=== PATIENT | female | born 1935 | race African-American/Black ===

== ENCOUNTER 2018-05-08 20:06 | Emergency (ER) | payer OTHER ==
[~2018-05-08] VITALS: Ht 170.2 cm; Wt 45.0 kg
[2018-05-08 21:55] LABS: CLARITY URINE CLOUDY (CLEAR); COLOR URINE YELLOW (YELLOW); KETONES URINE NEGATIVE (NEGATIVE); LEUKOCYTE ESTERASE URINE 1+ (NEGATIVE); NITRITE URINE NEGATIVE (NEGATIVE); OCCULT BLOOD URINE NEGATIVE (NEGATIVE); PROTEIN URINE 1+ (NEGATIVE); SPECIFIC GRAVITY URINE 1.012 (1.005-1.030)
[2018-05-08 22:57] LABS: EOSINOPHILS % 0.3 % (0.0-5.0); HEMOGLOBIN. 11.3 g/dL (12.0-16.0); MEAN CORPUSCULAR HEMOGLOBIN 32.9 pg (28.0-32.0); MEAN CORPUSCULAR VOLUME 93.4 fL (81.0-99.0); MEAN PLATELET VOLUME 8.8 fl (7.4-10.4); MONOCYTES % 8.9 % (2.0-8.0); NEUTROPHILS % 51.8 % (40.0-76.0); PLATELET 334 x1000/uL (130-400); RED BLOOD CELL COUNT 3.43 mill/uL (4.2-5.4); RED CELL DISTRIBUTION WIDTH 13.2 % (11.6-14.6)
[2018-05-08 23:04] LABS: CHLORIDE 106 mEq/L (98-107); INR 1.1; PROTHROMBIN TIME 11.4 sec (9.1-11.1)
[2018-05-08] MEDS ORDERED: POTASSIUM CHLORIDE 20MEQ/PACKET PO ONE (23:45)
[2018-05-08] MEDS ORDERED: LEVOFLOXACIN 750MG PREMIX 150 ML IV ONE (23:45)
[2018-05-09] MEDS ORDERED: BACITRACIN/POLYMYXIN B SULFATE OPHTH OINT 3.5GM BOTHEYE ONE (00:45)
[2018-05-09] MEDS ORDERED: POLYMYXIN B SULFATE/TMP 10ML BOTTLE BOTHEYE NR (02:00)
[2018-05-09 02:06] VITALS: BP 145/80
== END 2018-05-09 02:08 | disposition home or self-care (01) ==
LOC: ER 21:08
DX: G93.40 Encephalopathy, unspecified (principal); I16.0 Hypertensive urgency; N30.00 Acute cystitis without hematuria; I10 Essential (primary) hypertension; F03.90 Unspecified dementia, unspecified severity, without behavioral disturbance, psychotic disturbance, mood disturbance, and anxiety; E11.9 Type 2 diabetes mellitus without complications; Z88.0 Allergy status to penicillin
CPT/HCPCS: 36415; 70450; 71045; 80053; 81003; 84484; 85025; 85610; 93005; 96365; 96366; 99284; J1956